=== PATIENT | female | born 1995 | race Caucasian/White ===

== ENCOUNTER 2020-02-12 09:12 | Emergency (ER) | payer OTHER ==
[~2020-02-12] VITALS: Ht 165.1 cm; Wt 58.4 kg
--- NOTE | 2020-02-12 10:02 | NUR ---
PT UPRIGHT ON GURNEY AWAKE WITH C/O THROAT DISCOMFORT "FROM THROWING UP SO MUCH BUT NO VOMITING" AT THIS TIME, RESPONDS APPROP TO STAFF, COMFORT MEASURES PROVIDED, BF AT BS, CALL LIGHT WITHN REACH.
[2020-02-12] MEDS ORDERED: MAALOX/HYOSCYAMINE/LIDOCAINE 45 ML BTL ONE (10:14)
[2020-02-12] MEDS ORDERED: MAALOX/HYOSCYAMINE/LIDOCAINE 45 ML BTL PO ONE (10:30)
[2020-02-12 11:02] VITALS: BP 103/58
--- NOTE | 2020-02-12 11:02 | NUR ---
PT REMAINS UPRIGHT ON GURNEY AWAKE & WATCHING TV, NAD & MORE COMFORTABLE AFTER GI COCKTAIL, RESPONDS APPROP TO STAFF, NO NEEDS AT THIS TIME, BF AT BS, CALL LIGHT WITHN REACH.
--- NOTE | 2020-02-12 11:43 | NUR ---
Patient given discharge instructions and Rx, they have confirmed that they understand the instructions. Patient ambulatory with steady gait.
== END 2020-02-12 11:56 | disposition home or self-care (01) ==
LOC: ED 09:32
DX: A08.4 Viral intestinal infection, unspecified (principal); K22.6 Gastro-esophageal laceration-hemorrhage syndrome; R11.2 Nausea with vomiting, unspecified; R19.7 Diarrhea, unspecified; R07.89 Other chest pain
CPT/HCPCS: 71046; 99283

== ENCOUNTER → 2021-06-02 | Outpatient (CLI) | payer OTHER | END | disposition home or self-care (01) | LOC: LAB 07:24 | PROVIDERS: ATTEND Nurse Practitioner | DX: Z00.00 Encounter for general adult medical examination without abnormal findings (principal); N91.5 Oligomenorrhea, unspecified ==